=== PATIENT | female | born 1945 | race Caucasian/White ===

== ENCOUNTER 2020-05-07 23:00 | Emergency (ER) | payer MEDICARE, MEDICAID ==
[~2020-05-07] VITALS: Ht 170.2 cm; Wt 83.5 kg
[2020-05-07 23:51] VITALS: BP 126/71
[2020-05-07 23:58] VITALS: BP 126/71
[2020-05-08] VITALS: BP 113/71
[2020-05-08] MEDS ORDERED: NS 1000ML 1,000 ML IV STA ×2 (00:06→02:29)
[2020-05-08] MEDS ORDERED: ZOFRAN IV STA (00:06)
[2020-05-08] MEDS ORDERED: ZOFRAN ONE (00:10)
[2020-05-08] MEDS ORDERED: NS 1000ML 1,000 ML ONE ×2 (00:10→02:55)
--- NOTE | 2020-05-08 00:11 | ER.PDOC ---
General Chief Complaint: Nausea,Vomiting,Diarrhea Stated Complaint: CONSTIPATION,WEAKNESS Time seen by MD: 00:09 Source: patient Exam Limitations: no limitations History of Present Illness Initial Comments Nausea/vomiting and weakness for 10 days. No fever or chills. Patient also feels constipated. Severity/Quality: moderate Associated Symptoms (vomiting): freq vomitng Allergies: Coded Allergies: codeine (Verified Allergy, Unknown, hives, 05/08/20) meperidine (Verified Allergy, Unknown, hives, 05/08/20) morphine (Verified Allergy, Unknown, hives, 05/08/20) Vital Signs First Vital Signs Date Time Temp Pulse Resp B/P (MAP) Pulse Ox O2 Delivery O2 Flow Rate FiO2 05/07/20 23:51 98.9 95 20 98 05/07/20 23:51 126/71 (89) Room Air Last Vital Signs Date Time Temp Pulse Resp B/P (MAP) Pulse Ox O2 Delivery O2 Flow Rate FiO2 05/08/20 00:15 95 18 126/61 (82) 99 Room Air 05/07/20 23:58 98.9 Past Medical History Medical History: diabetes, high cholesterol, thyroid disease Social History Alcohol Use: none Drug Use: none Constitutional: no symptoms reported Respiratory: no symptoms reported Cardiovascular: no symptoms reported Gastrointestinal: see HPI Genitourinary: no symptoms reported Musculoskeletal: no symptoms reported All Other Systems: Reviewed and Negative Physical Exam General Appearance: No Apparent Distress, WD/WN HEENT: Normal ENT Inspection Neck: Non-Tender, Full Range of Motion, Supple, Normal Inspection Respiratory: chest non-tender, lungs clear, normal breath sounds, no respiratory distress, no accessory muscle use Cardiovascular: Normal Peripheral Pulses, Regular Rate, Rhythm, No Edema, No Gallop, No JVD, No Murmur, Tachycardia Gastrointestinal: No Organomegaly, No Pulsatile Mass, Hyperactive bowel sounds, Distended, Guarding, Tenderness (mild generalized), Other (abdominal wall hernias) Back: Normal Inspection, No CVA Tenderness, No Vertebral Tenderness Extremities: Normal Range of Motion, Non-Tender, Normal Inspection, No Pedal Edema, No Calf Tenderness, Normal Capillary Refill, Pelvis Stable 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 (05/08/20 00:06) Ekg-Routine (05/08/20 00:06) 0.9 % Sodium Chloride (Ns 1000ml) (05/08/20 00:06) Ondansetron Hcl/Pf (Zofran) (05/08/20 00:06) 0.9 % Sodium Chloride (Ns 1000ml) (05/08/20 00:10) Ondansetron Hcl/Pf (Zofran) (05/08/20 00:10) Ct Abd/Pelvis Wo Iv Contrast (05/08/20 00:06) Urine Culture (05/08/20 01:20) Vital Signs Date Time Temp Pulse Resp B/P (MAP) Pulse Ox O2 Delivery O2 Flow Rate FiO2 05/08/20 00:15 95 18 126/61 (82) 99 Room Air 05/08/20 00:00 104 20 113/71 (85) 99 Room Air 05/07/20 23:58 98.9 95 20 126/71 (89) 98 Room Air 05/07/20 23:51 98.9 95 20 05/07/20 23:51 98.9 95 20 126/71 (89) 98 Room Air 05/07/20 23:51 98.9 95 20 98 Administered Medications Medications (Trade) Dose Ordered Sig/Javi Route PRN Reason Start Time Stop Time Status Last Admin Dose Admin Ondansetron HCl (Zofran) 4 mg STAT STAT IV 05/08/20 00:06 05/08/20 00:09 DC 05/08/20 00:23 4 MG Sodium Chloride 1,000 ml @ 1,200 mls/hr Q50M STAT IV 05/08/20 00:06 05/08/20 00:55 DC 05/08/20 00:23 1,200 MLS/HR Laboratory Tests Test 05/08/20 00:20 05/08/20 00:47 05/08/20 01:20 White Blood Count 20.1 10^3/uL (4.5-11.0) H Red Blood Count 5.62 10^6/uL (4.00-5.20) H Hemoglobin 16.2 g/dL (12.0-15.0) H Hematocrit 46.8 % (36.0-46.0) H Mean Corpuscular Volume 83.3 fL (78-100) Mean Corpuscular Hemoglobin 28.8 pg (26-34) Mean Corpuscular Hemoglobin Concent 34.6 g/dL (33-36.5) Red Cell Distribution Width 13.3 % (11.5-14.5) Platelet Count 402 10^3/uL (150-400) H Mean Platelet Volume 11.4 fL (7.8-11.0) H Neutrophils (%) (Auto) 75.0 % (41.0-85.0) Lymphocytes (%) (Auto) 16.5 % (24.0-44.0) L Monocytes (%) (Auto) 5.1 % (5.0-12.0) Neutrophils # (Auto) 15.1 10^3/uL (1.8-7.7) H Lymphocytes # (Auto) 3.31 10^3/uL1 (1.0-4.8) Monocytes # (Auto) 1.0 10^3/uL (0.3-0.8) H Absolute Immature Granulocyte (auto 0.68 10^3 u/L (0-2) Absolute Eosinophils (auto) 0.0 10^3/uL (0.0-0.2) Immature Granulocytes % 3.40 % (0.00-0.50) H Eosinophils % 0.0 % (0.0-5.0) Basophils % 0.0 % (0.0-0.2) Basophils # 0.0 10^3/uL (0.0-0.1) Prothrombin Time 11.7 SEC (9.3-11.3) H Prothrombin Time INR (Non-Therap) 1.2 Activated Partial Thromboplast Time 24.3 SEC (24.67-30.72) Sodium Level 122 mmol/L (132-145) #L Potassium Level 5.0 mmol/L (3.6-5.2) Chloride Level 79.0 mmol/L (96-109) *L Carbon Dioxide Level 24.2 mmol/L (20.0-32) Anion Gap 23.8 Blood Urea Nitrogen 111 mg/dL (7-18) *H Creatinine 6.75 mg/dL (0.59-1.40) *H Estimated GFR () 7.3 (>/=60) Est GFR (CKD-EPI)(Non-Afr Serbian) 6.0 (>/=60) BUN/Creatinine Ratio 16.0 Glucose Level 219 mg/dL (70-110) H Calcium Level 9.6 mg/dL (8.4-10.5) Total Bilirubin 0.6 mg/dL (0.2-1.0) Aspartate Amino Transferase (AST) 17 U/L (0-35) Alanine Aminotransferase (ALT) 21 U/L (12-78) Alkaline Phosphatase 73 U/L (50-136) Total Protein 8.0 g/dL (6.4-8.2) Albumin 3.5 g/dL (3.4-5.0) Globulin 4.5 Lipase 571 U/L (114-286) H Segmented Neutrophils 76 % (31-76) Band Neutrophils 10 % (2-6) H Lymphocytes 11 % (25-36) L Monocytes 3 % (3-9) Platelet Estimate SLIGHTLY INCREASED Platelet Morphology NORMAL Blood Morphology Comment NORMAL MORPHOLOGY Urine Collection Type VOID Urine Color YELLOW (YELLOW) Urine Appearance CLOUDY (CLEAR) H Urine Bilirubin 6 MG/DL (NEGATIVE) H Urine Ketones TRACE (NEGATIVE) Urine Specific [place] 1.020 (1.005-1.035) Urine pH 5.0 (5.0-6.0) Urine Protein 100 mg/dL (NEGATIVE) H Urine Urobilinogen NORMAL (NEGATIVE) Urine Nitrate NEGATIVE (NEGATIVE) Urine Leukocyte Esterase NEGATIVE (NEGATIVE) Urine Blood NEGATIVE (NEGATIVE) Urine RBC 0-2 RBC/HPF (NONE SEEN) Urine WBC 0-2 WBC/HPF (0-2) Urine Squamous Epithelial Cells FEW #/HPF (FEW) Urine Amorphous Sediment LARGE (NONE SEEN) Urine Bacteria FEW (NONE SEEN) H Urine Glucose 100 (NEGATIVE) H Progress Progress CT abdomen/pelvis: Small-bowel obstruction and perforation secondary to incarcerated hernia. 2. Colon and small bowel postsurgical changes. Patient transferred because he is in acute renal failure with a creatinine of 6.7 and will need a [employer]. Patient refused to be flown to [place], wants to be transported by Ambulance. EKG/XRAY/CT/US EKG: NSR Departure Time of Disposition: 02:17 Disposition: 02 XFER SHT-TRM HOSP Impression: Primary Impression: Sepsis Additional Impressions: Acute kidney injury Small bowel obstruction Small bowel perforation Incarcerated hernia Hyponatremia Condition: Critical Referrals: RYNE ESCOBAR MD (PCP) PRIMARY CARE PROVIDER Duration or Time Spent with Pa: 60 min Critical Care Note Total Time (mins): 60 Problem Qualifiers Primary Impression: Sepsis Sepsis type: sepsis due to unspecified organism Sepsis acute organ dysfunction status: unspecified Qualified Codes: A41.9 - Sepsis, unspecified organism LISSA RASHID MD May 08, 2020 00:11
[2020-05-08 00:15] VITALS: BP 126/61
--- NOTE | 2020-05-08 00:15 | NUR ---
KRISTINA MCCRACKEN NOTIFIED OF CT AT THIS TIME.
--- NOTE | 2020-05-08 00:20 | NUR ---
KRISTINA SOLOMON IN PT ROOM WITH CONSENTS FOR CT AT THIS TIME.
[2020-05-08 00:27] LABS: LYMPHOCYTES # 3.31 10^3/uL1 (1.0-4.8); LYMPHOCYTES % 16.5 % (24.0-44.0); MEAN CORP HGB 28.8 pg (26-34); MONOCYTES % 5.1 % (5.0-12.0); NEUTROPHIL # 15.1 10^3/uL (1.8-7.7); PLATELET COUNT 402 10^3/uL (150-400); RED CELL DISTRIBUTION WIDTH 13.3 % (11.5-14.5)
[2020-05-08 00:47] LABS: CALCIUM 9.6 mg/dL (8.4-10.5); CARBON DIOXIDE 24.2 mmol/L (20.0-32)
--- NOTE | 2020-05-08 00:47 | PCM.EKG ---
[facility] Test Date: 2020-05-08 Test Time: 00:32:21 Pat Name: JOSE GARCIA Department: Room: Gender: F Coffee Shop Manager: AYLEEN : 1945 Requested By: LISSA RASHID Order Number: [id number] Reading MD: Lissa RASHID Measurements Intervals [place] Rate: 102 P: 60 OR: 149 QRS: -5 QRSD: 74 T: 62 QT: 344 QTc: 449 Interpretive Statements Sinus tachycardia Multiform ventricular premature complexes Probable left atrial enlargement Baseline wander in lead(s) II,III,aVL,aVF,V1,V2,V4 Compared to ECG 04/26/2020 12:44:32 Ventricular premature complex(es) now present Sinus rhythm no longer present Electronically Signed On 05-09-2020 7:24:25 CDT by Lissa RASHID Please click the below link to view image of tracing.
[2020-05-08 01:27] LABS: BAND NEUTROPHILS 10 % (2-6); LYMPHOCYTE 11 % (25-36); MONOCYTE 3 % (3-9); SEGMENTED NEUTROPHILS 76 % (31-76)
[2020-05-08 01:39] LABS: APPEARANCE,URINE CLOUDY (CLEAR); BILIRUBIN,URINE 6 MG/DL (NEGATIVE); UA COLOR YELLOW (YELLOW)
[2020-05-08 01:40] LABS: UROBILINOGEN,URINE NORMAL (NEGATIVE)
--- NOTE | 2020-05-08 01:51 | DIREP ---
PROCEDURE:CT ABD/PELVIS WITHOUT CONTRAST TECHNIQUE:No oral contrast was given. Axial cuts were obtained through the abdomen and pelvis without IV contrast. The images were viewed at lung and soft tissue settings. Sagittal and coronal reconstructions are provided. COMPARISON:None. INDICATIONS:Nause/vomiting/abdominal pain FINDINGS: LOWER CHEST:No infiltrate or pleural effusion. Small anterior pericardial effusion. LIVER:Normal. BILIARY:Cholecystectomy. No biliary duct dilatation. PANCREAS:Normal. SPLEEN:Normal. URINARY TRACT:No renal or ureteral stone, obstruction or perinephric inflammation. Unremarkable urinary bladder. ADRENALS:Normal. AORTA/VASCULAR:Aortoiliac calcification without dilatation. RETROPERITONEUM:Normal. BOWEL/MESENTERY:Sigmoid and small bowel anastomotic sutures. Multiple loops of fluid-filled small bowel loops with scattered intraperitoneal free air. Decompressed colon and multiple colonic diverticula. ABDOMINAL WALL:Supraumbilical and right ventral hernias and large panniculus containing decompressed colon and dilated small bowel loops. PELVIS:Normal. BONES:Advanced L5/S1 disc degenerative changes. Grade I degenerative anterolisthesis L4. OTHER:Normal. Sign CONCLUSION: 1. Small-bowel obstruction and perforation secondary to incarcerated hernia. 2. Colon and small bowel postsurgical changes. Dictated by: Shahrzad Rogers MD on 05/08/2020 at 01:39 AM
--- NOTE | 2020-05-08 02:13 | NUR ---
[facility] DR. RASHID ON PHONE WITH DANG AT [facility] REGARDING TRANSFER OF PT.
[2020-05-08] MEDS ORDERED: ZOSYN 2.25 GM 2.25 GM in NS 100ML 100 ML IV STA (02:21)
[2020-05-08] MEDS ORDERED: NS 100ML 100 ML IV ONE (02:31)
--- NOTE | 2020-05-08 02:40 | DIREP ---
PROCEDURE:CHEST 1 VIEW COMPARISON:[facility], CR, XRAY CHEST 2 VWS, 04/26/2020, 12:41 PM. [facility], CT, CT ABD/PELVIS W/O, 05/08/2020, 01:15 AM. INDICATIONS:NG tube placement FINDINGS: LUNGS/PLEURA:Mild chronic interstitial changes. No infiltrate or pleural effusion. CARDIAC:Normal cardiac silhouette and normal pulmonary vascularity. MEDIASTINUM:Normal BONES:Normal OTHER:NGT courses subdiaphragmatic and off the field of view. Subdiaphragmatic free air as seen on CT. CONCLUSION:No acute cardiopulmonary process. Dictated by: Shahrzad Rogers MD on 05/08/2020 at 02:37 AM
--- NOTE | 2020-05-08 02:52 | NUR ---
DISPATCH CALLED DISPATCH FOR EMS FOR TRANSFER TO [facility] AT THIS TIME.
[2020-05-08 02:54] VITALS: BP 138/64
--- NOTE | 2020-05-08 03:17 | NUR ---
EMS HERE TO TRANSPORT PT TO ER. REPORT GIVEN TO [facility]. RELINQUISH CARE OF PT TO [facility] AT THIS TIME.
--- NOTE | 2020-05-08 03:25 | NUR ---
REPORT CALLED TO FAINA SALGADO AT [facility] AT THIS TIME.
== END 2020-05-08 03:20 | disposition short-term general hospital (02) ==
LOC: ER 23:00
DX: A41.9 Sepsis, unspecified organism (principal); E07.9 Disorder of thyroid, unspecified; E11.9 Type 2 diabetes mellitus without complications; R11.2 Nausea with vomiting, unspecified; E78.00 Pure hypercholesterolemia, unspecified; E87.1 Hypo-osmolality and hyponatremia; K56.609 Unspecified intestinal obstruction, unspecified as to partial versus complete obstruction; K63.1 Perforation of intestine (nontraumatic); N17.9 Acute kidney failure, unspecified; Z79.899 Other long term (current) drug therapy; Z88.5 Allergy status to narcotic agent
CPT/HCPCS: 36415; 71045; 74176; 80053; 81000; 83605; 83690; 85025; 85610; 85730; 87040 ×2; 87086; 93005; 96361; 96365; 96375; 99291; J2405; J2543; J7030 ×2; J7050 ×2; 99285

== ENCOUNTER → 2020-06-29 | Outpatient (CLI) | payer MEDICARE, MEDICAID ==
[2020-06-29 14:07] LABS: CALCIUM 10.9 mg/dL (8.4-10.5)
== END | disposition home or self-care (01) ==
LOC: NPLAB 11:15
PROVIDERS: ATTEND Internal Medicine
DX: E11.9 Type 2 diabetes mellitus without complications (principal); E03.9 Hypothyroidism, unspecified; K56.609 Unspecified intestinal obstruction, unspecified as to partial versus complete obstruction; Z48.815 Encounter for surgical aftercare following surgery on the digestive system
CPT/HCPCS: 80053; 86140

== ENCOUNTER → 2020-06-30 | Outpatient (CLI) | payer MEDICARE, MEDICAID ==
[2020-06-30 16:58] LABS: BASOPHIL % 0.5 % (0.0-0.2); EOSINOPHIL # 0.2 10^3/uL (0.0-0.2); LYMPHOCYTES # 1.69 10^3/uL1 (1.0-4.8); LYMPHOCYTES % 21.9 % (24.0-44.0); MEAN CORP HGB 27.3 pg (26-34); MONOCYTES # 0.6 10^3/uL (0.3-0.8); MONOCYTES % 8.3 % (5.0-12.0); NEUTROPHIL # 5.1 10^3/uL (1.8-7.7); NEUTROPHILS % 65.9 % (41.0-85.0); PLATELET COUNT 266 10^3/uL (150-400); RED CELL DISTRIBUTION WIDTH 15.6 % (11.5-14.5)
== END | disposition home or self-care (01) ==
LOC: NPLAB 16:39
PROVIDERS: ATTEND Family Medicine
DX: Z48.815 Encounter for surgical aftercare following surgery on the digestive system (principal)
CPT/HCPCS: 85025

== ENCOUNTER → 2020-07-01 | Outpatient (CLI) | payer MEDICARE, MEDICAID ==
--- NOTE | 2020-07-01 15:48 | DIREP ---
PROCEDURE:CT ABDOMEN/PELVIS W/ CONTRAST COMPARISON:[facility], CT, CT ABD/PELVIS W/O, 05/08/2020, 01:15 AM. INDICATIONS:SURGICAL AFTERCARE, SURGERY ON THE DIGESTIVE SYSTEM TECHNIQUE:Axial images were created through the abdomen and pelvis with non-ionic intravenous contrast material. No oral contrast was administered. Sagittal and coronal reconstructions were performed from source images. FINDINGS: LUNG BASES:There are dependent atelectatic changes at the lung bases, right greater than left. LIVER:Normal. No significant liver lesions are identified. BILIARY:Cholecystectomy PANCREAS:Normal. No lesion, fluid collection, ductal dilatation, or atrophy. SPLEEN:Normal. No enlargement or focal lesion. ADRENALS:Normal. No mass or enlargement. URINARY TRACT:Normal. No focal lesions or hydronephrosis. Small renal cysts, more numerous on the left AORTA/VASCULAR:Normal. No aneurysm. RETROPERITONEUM:Normal. No mass or adenopathy. BOWEL/MESENTERY:No bowel obstruction. Minimal free fluid and mesenteric edema, in keeping with recent surgery. Surgical changes, with anastomotic sutures ABDOMINAL WALL:Surgical changes, as anterior abdominal wall fluid collection, with small amounts of air. This is concerning for abscess. This measures 13 x 13 x 4 cm in size. In the midline, this is just over 2 cm PELVIC ORGANS:Normal. No visible mass. Pelvic organs appropriate for patient age. BONES:There are degenerative changes of the spine. OTHER:Negative. CONCLUSION:Air-fluid collection along the anterior abdominal wall, concerning for abscess. Measurements above. Dictated by: Ronny Arguello MD on 07/01/2020 at 03:41 PM
== END | disposition home or self-care (01) ==
LOC: EEVIPCON 06-30 16:30 → RAD 14:24
PROVIDERS: ATTEND Surgery
DX: Z48.815 Encounter for surgical aftercare following surgery on the digestive system (principal)
CPT/HCPCS: 74177; Q9965

== ENCOUNTER → 2020-08-30 | Outpatient (CLI) | payer MEDICARE, MEDICAID ==
--- NOTE | 2020-08-30 15:05 | DIREP ---
PROCEDURE:BONE DENSITY PERIPHERAL INDICATIONS:OSTEOPOROSIS COMPARISON:None. FINDINGS: Femur Proximal RIGHT femur bone mineral density (BMD) (g/cm2): 0.789 T-score : -1.7 Proximal LEFT femur bone mineral density (BMD) (g/cm2): 0.888T-score: -0.9 Lumbar Lumbar bone mineral density (BMD) (g/cm2): 1.201T-score : 0.1 Imaging- subtle convex right scoliosis, may be positional CONCLUSION: 1. Osteopenia of the right total hip. Normal bone mineral density lumbar spine and left hip. 2. Based on the Imelda FRAX study, the patient's 10-year probability of a major osteoporotic fracture (clinical spine, forearm, hip or shoulder) is 13.5 %, and the 10-year probability of a hip fracture is 3.2 %. SUGGESTED RECOMMENDATIONS: Normal & Osteopenia:Consideration should be given to use of calcium supplementation, daily multiple vitamins and adequate exercise, as preventive measures against osteoporosis, if clinically indicated. Osteoporosis & Severe Osteoporosis:In addition to the above, consideration should be given to medical therapy against osteoporosis, if clinically indicated. Dictated by: Derrick Garcia MD on 08/30/2020 at 02:52 PM
== END | disposition home or self-care (01) ==
LOC: BD 13:28
PROVIDERS: ATTEND Internal Medicine
DX: Z13.820 Encounter for screening for osteoporosis (principal); M81.0 Age-related osteoporosis without current pathological fracture; M85.861 Other specified disorders of bone density and structure, right lower leg
CPT/HCPCS: 77080

== ENCOUNTER → 2020-10-12 | Outpatient (CLI) | payer MEDICARE, MEDICAID ==
--- NOTE | 2020-10-12 12:49 | DIREP ---
PROCEDURE:Digital Screening Mammogram TECHNIQUE:MLO and CC digital images of each breast are provided. Computer Assisted Detection (CAD) was utilized. COMPARISON:[facility], , MAMMO BILATERAL SCREENING, 09/16/2018, 09:19 AM. INDICATIONS:SCREENING BREAST COMPOSITION:Heterogeneously dense, which may obscure small masses. FINDINGS:There are no grouped microcalcifications, masses, or architectural distortions to suggest malignancy. There is no significant change as compared with the previous examination(s). IMPRESSION:No mammographic evidence of malignancy. RECOMMENDATIONS:Routine Screening Mammography per [employer] guidelines. OVERALL FINAL ASSESSMENT:BI-RADS 1 - Negative Mammogram Note: This facility participates in a mammography screening patient reminder system. Dictated by: Sammy Poe M.D. on 10/12/2020 at 12:43 PM
== END | disposition home or self-care (01) ==
LOC: RAD 08:52
PROVIDERS: ATTEND Internal Medicine
DX: Z12.31 Encounter for screening mammogram for malignant neoplasm of breast (principal); N64.89 Other specified disorders of breast
CPT/HCPCS: 77067

== ENCOUNTER 2021-05-03 07:00 | Day surgery (SDC) | payer MEDICARE, MEDICAID ==
[2021-04-27 13:36] VITALS: BP 140/78
[2021-04-27 13:48] LABS: BASOPHIL # 0.1 10^3/uL (0.0-0.1); BASOPHIL % 0.8 % (0.0-0.2); EOSINOPHIL # 0.2 10^3/uL (0.0-0.2); EOSINOPHIL % 3.4 % (0.0-5.0); LYMPHOCYTES # 1.36 10^3/uL1 (1.0-4.8); LYMPHOCYTES % 22.8 % (24.0-44.0); MEAN CORP HGB 26.5 pg (26-34); MONOCYTES # 0.6 10^3/uL (0.3-0.8); MONOCYTES % 10.4 % (5.0-12.0); NEUTROPHIL # 3.7 10^3/uL (1.8-7.7); NEUTROPHILS % 62.4 % (41.0-85.0); PLATELET COUNT 202 10^3/uL (150-400); RED CELL DISTRIBUTION WIDTH 15.5 % (11.5-14.5)
[2021-04-27 13:57] LABS: CALCIUM 10.2 mg/dL (8.4-10.5); CARBON DIOXIDE 29.3 mmol/L (20.0-32)
[~2021-05-03] VITALS: Ht 165.1 cm; Wt 83.0 kg
[2021-05-03] VITALS (8 sets, daily range): BP systolic 125–142; BP diastolic 66–88
[~2021-05-03 07:00] MED LIST: ASPI-667 PO; CETI10TA18 PO; LEVAQUIN 100 ML IV ONE; LEVO50TA6 PO; LOVA20TA2 PO; NS 1000ML 1,000 ML IV SCH; NS 1000ML 1,000 ML ONE; PANT40TA6 PO; POLY119P PO; TRAZ-163 PO; ZOLP5TAB6 PO; [UNRECOGNIZED DRUG - CODE] PO
[2021-05-03] MEDS ORDERED: XYLOCAINE 2% 5ML VIAL ONE (07:02)
[2021-05-03] MEDS ORDERED: PEPCID IV ONE (07:02)
[2021-05-03] MEDS ORDERED: ZOFRAN ONE (07:02)
[2021-05-03] MEDS ORDERED: TORADOL ONE (07:02)
[2021-05-03] MEDS ORDERED: DIPRIVAN IV ONE (07:03)
[2021-05-03] MEDS ORDERED: SUBLIMAZE ONE (07:03)
[2021-05-03] MEDS ORDERED: SODIUM CHLORIDE IRR BOTTLE IR ONE (07:17)
[2021-05-03] MEDS ORDERED: NS 3000ML IRR IR ONE (07:17)
[2021-05-03] MEDS ORDERED: LACTATED RINGERS 1,000 ML IV SCH (08:30)
--- NOTE | 2021-05-03 08:42 | OPH ---
DATE OF SURGERY: 05/03/2021 DICTATOR NAME: Jonathon Wise MD DATE OF PROCEDURE: 05/03/2021 PREOPERATIVE DIAGNOSIS: Rule out vesical fistula. FINAL DIAGNOSIS: No evidence of vesical fistula trigonitis. PROCEDURE: Cystogram and cystoscopy. DESCRIPTION OF PROCEDURE: The patient was brought to the cystoscopy room, was put in supine position on the cystoscopy table. After the patient was given a satisfactory and adequate LMA general anesthesia, the patient was placed in the lithotomy position. The genitalia was then prepped and draped aseptically in the usual manner. First, a 12-Slovenian catheter was inserted per urethra up to the bladder and a cystogram was done by instilling an Omnipaque dye to the bladder and the cystogram revealed no evidence of the vesical fistula. After this was done, the bladder was emptied with a dye and then a 23-Slovenian cystoscope was inserted per urethra up to the bladder. We used the right angle lens, the bladder was again visualized. Both ureteral orifices were normal. There is some congestion noted in the trigone, but there is no evidence. The mucosa appears to be normal. No evidence of calculi, ulceration seen. No evidence of fistula. Procedure was then terminated. Bladder was emptied with fluid. Instrument was removed. The patient was then awakened, was transferred to the recovery room in stable condition. Jonathon Wise MD DR: TEX/SHAYE TID: [id number] RECEIPT: [id number]
--- NOTE | 2021-05-05 14:02 | DIREP ---
PROCEDURE: XRAY CYSTOGRAM 3VWS COMPARISON: None. INDICATIONS: 10FILMS 41.44MGY 108.3ECS FLURO 100ML OMNI 350 TECHNIQUE: 10 spot fluoroscopic images were submitted. FINDINGS: Total fluoroscopy time was 1:00 a.m. 8.3 seconds. CONCLUSION: Intraoperative fluoroscopy to assist the surgeon. Please see operative report for full details. Dictated by: Hilton Ma M.D. on 05/05/2021 at 01:40 PM [facility]ITAL[facility]
== END 2021-05-03 09:51 | disposition home or self-care (01) ==
LOC: SDC 07:00
PROVIDERS: ATTEND Urology
DX: N32.2 Vesical fistula, not elsewhere classified (principal); E11.9 Type 2 diabetes mellitus without complications; K21.9 Gastro-esophageal reflux disease without esophagitis; M19.90 Unspecified osteoarthritis, unspecified site; E03.9 Hypothyroidism, unspecified; Z79.82 Long term (current) use of aspirin; Z98.890 Other specified postprocedural states; Z87.891 Personal history of nicotine dependence; Z87.01 Personal history of pneumonia (recurrent); Z79.899 Other long term (current) drug therapy; Z79.890 Hormone replacement therapy; Z79.84 Long term (current) use of oral hypoglycemic drugs
CPT/HCPCS: 36415; 51600; 74430; 80048; 82948; 85025; A4217 ×2; J1885; J1956 ×2; J2001; J2405; J3010; J3490 ×2; J7030; Q9965; 76000; C1758

== ENCOUNTER → 2021-11-22 | Outpatient (CLI) | payer MEDICARE, MEDICAID ==
[~2021-11-22] MED LIST changes: -LEVAQUIN 100 ML IV ONE; -NS 1000ML 1,000 ML IV SCH; -NS 1000ML 1,000 ML ONE
--- NOTE | 2021-11-22 16:54 | DIREP ---
PROCEDURE:Digital Screening Mammogram TECHNIQUE:MLO and CC digital images of each breast are provided. Computer Assisted Detection (CAD) was utilized. COMPARISON:[facility], MAMMO BILATERAL SCREENING, 09/16/2018, 09:19 AM. [facility], MAMMO BILATERAL SCREENING, 10/12/2020, 09:43 AM. INDICATIONS:SCREENING BREAST COMPOSITION:Heterogeneously dense, which may obscure small masses. FINDINGS:There is no significant change as compared with the previous examination(s). IMPRESSION:No mammographic evidence of malignancy. RECOMMENDATIONS:Repeat routine screening mammogram in 12 months based on [employer] Guidelines. OVERALL FINAL ASSESSMENT: BI RADS 2 - Benign Finding(s) Note: This facility participates in a mammography screening patient reminder system. Dictated by: Manan Cochran M.D. on 11/22/2021 at 04:45 PM
== END | disposition home or self-care (01) ==
LOC: RAD 14:44
PROVIDERS: ATTEND Nurse Practitioner Women's Health
DX: Z12.31 Encounter for screening mammogram for malignant neoplasm of breast (principal)
CPT/HCPCS: 77067

== ENCOUNTER → 2022-01-25 | Outpatient (CLI) | payer MEDICARE, MEDICAID ==
--- NOTE | 2022-01-25 14:25 | DIREP ---
PROCEDURE:CT ABD/PELVIS W/WO TECHNIQUE: Multiple axial CT images of the abdomen pelvis were obtained without and with the use of intravenous contrast. Enteric contrast was administered rectally. Coronal and sagittal reformats performed. COMPARISON:[facility], CT, CT ABD/PELVIS W/ CONTRAST, 07/01/2020, 03:04 PM. [facility], CT, CT ABD/PELVIS W/O, 05/08/2020, 01:15 AM. INDICATIONS:RECTAL, VAGINAL AND ENTERO-COLONIC FISTULA FINDINGS: LOWER CHEST:Left breast medial calcifications. Linear densities at the lung bases may be on the basis of subsegmental atelectasis or scarring. Right hemidiaphragm defect. LIVER:Normal. BILIARY:Cholecystectomy. Minimal intrahepatic biliary duct dilation. Common bile duct is prominent. Findings may be on the basis of biliary dysmotility or postcholecystectomy change. PANCREAS:Fatty atrophy of the pancreas. SPLEEN:Normal. URINARY TRACT:Symmetric enhancement of the kidneys. No suspicious lesion, hydronephrosis, or calculi. Multiple bilateral renal cysts. Ureters are normal. ADRENALS:Normal. AORTA/VASCULAR:Mild vascular calcification. No aneurysmal dilation. RETROPERITONEUM:The size criteria. BOWEL/MESENTERY:Stomach is decompressed. Large and small bowel loops are nondilated. Colonic diverticulosis without CT evidence of acute diverticulitis. Right administration of enteric contrast. No evidence of contrast extravasation to suggest an enterovaginal, enterocutaneous, or enterocystic fidtula. Multiple anterior abdominal wall defects are seen with herniation of bowel loops. No findings to suggest obstruction. No suspicious pericolonic stranding. Ventral abdominal wall scarring. ABDOMINAL WALL:Ventral abdominal wall incisional scarring. Multiple ventral abdominal wall defect with herniated bowel loop content. No findings to suggest obstruction. PELVIS:Reproductive organs are normal for age. Urinary bladder is normal. BONES:Degenerative change of spine. OTHER:Normal. CONCLUSION: No findings to suggest enterovaginal, enterocystic, or enterocutaneous fistula. Multiple ventral abdominal wall defect with herniated bowel loop content. No findings to suggest obstruction. Colonic diverticulosis without CT evidence of acute diverticulitis. Additional findings as above. Dictated by: Johny Jacobo MD on 01/25/2022 at 02:11 PM
== END | disposition home or self-care (01) ==
LOC: RAD 10:27
PROVIDERS: ATTEND Surgery
DX: K57.30 Diverticulosis of large intestine without perforation or abscess without bleeding (principal); K63.2 Fistula of intestine; N82.3 Fistula of vagina to large intestine
CPT/HCPCS: 36415; 74178; 82565; Q9963; Q9965